=== PATIENT | male | born 1955 | race Caucasian/White ===

== ENCOUNTER 2019-01-06 11:21 | Outpatient (CLI) | payer MEDICARE, OTHER ==
[2019-01-06 18:45] LABS: BASOPHILS % (AUTO) 0.4 %; EOSINOPHILS # (AUTO) 0.2 10^3/uL (0.0-0.7); EOSINOPHILS % (AUTO) 1.9 %; LYMPHOCYTES # (AUTO) 0.5 10^3/uL (1.5-3.5); LYMPHOCYTES % (AUTO) 5.4 %; MEAN CORPUSCULAR HEMOGLOBIN 28.2 pg (27.0-31.0); MEAN CORPUSCULAR HGB CONC 30.5 g/dL (32.0-36.0); MEAN CORPUSCULAR VOLUME 92.3 fL (80.0-94.0); MEAN PLATELET VOLUME 11.7 fL (7.4-11.4); MONOCYTES # (AUTO) 0.6 10^3/uL (0.0-1.0); MONOCYTES % (AUTO) 7.5 %; NEUTROPHILS # (AUTO) 7.1 10^3/uL (1.5-6.6); NEUTROPHILS % (AUTO) 84.2 %; PLT - PLATELET COUNT 192 10^3/uL (130-450); RED CELL DISTRIBUTION WIDTH 15.3 % (12.0-15.0); WHITE BLOOD COUNT 8.4 x10^3/uL (4.8-10.8)
[2019-01-06 19:33] LABS: H. PYLORIS ANTIGEN STL POSITIVE (Negative)
[2019-01-06 20:03] LABS: ALBUMIN 4.2 g/dL (3.2-5.5); ALKALINE PHOSPHATASE 112 IU/L (42-121); ALT ALANINE AMINOTRANSFERASE 16 IU/L (10-60); AMYLASE 126 U/L (28-100); AST ASPARTATE AMINOTRANSFERASE < 10 IU/L (10-42); BILIRUBIN,TOTAL 0.7 mg/dL (0.2-1.0); CHLORIDE 105 mmol/L (101-111); CHOL/HDL RATIO 6.7 (<5.0); CHOLESTEROL 167 mg/dL; GFR - MDRD 3 (>89); GLUCOSE 99 mg/dL (70-100); HDL CHOLESTEROL 25 mg/dL; HGB - HEMOGLOBIN 6.2 g/dL (14.0-18.0); LDL CHOLESTEROL,CALCULATED 103 mg/dL; LDL/HDL RATIO 4.1 (<3.6); LIPASE 91 U/L (22-51); SODIUM 141 mmol/L (135-145); TOTAL PROTEIN 8.3 g/dL (6.7-8.2); VLDL CHOLESTEROL 39 mg/dL
[2019-01-06 20:04] LABS: BUN - BLOOD UREA NITROGEN 182 mg/dL (6-20); CARBON DIOXIDE - CO2 9 mmol/L (21-32); CREATININE 16.8 mg/dL (0.6-1.2)
== END 2019-01-06 23:59 | disposition home or self-care (01) ==
LOC: LAB.N 11:21
PROVIDERS: ATTEND Family Medicine
DX: R11.2 Nausea with vomiting, unspecified (principal); I10 Essential (primary) hypertension; N40.0 Benign prostatic hyperplasia without lower urinary tract symptoms
CPT/HCPCS: 36415; 80061; 82150; 83690; 87338; G0103; 80053; 83721; 84153; 84443; 85025

== ENCOUNTER 2019-01-06 21:17 | Emergency (ER) | payer MEDICARE, OTHER ==
[2019-01-06] MEDS ORDERED: LACTATED RINGERS 1,000 ML IV STA (21:19)
[2019-01-06 21:46] LABS: VBG PCO2 28.5 mmHg (41-51); VBG PH 7.128 (7.31-7.41); VBG PO2 41.5 mmHg (25-47); VBG TOTAL CO2 10.1 mmol/L (24-29)
[2019-01-06 21:47] LABS: VBG BASE EXCESS -18.4 mmol/L (-2 - +2)
[2019-01-06 21:51] LABS: BASOPHILS % (AUTO) 0.4 %; EOSINOPHILS # (AUTO) 0.3 10^3/uL (0.0-0.7); EOSINOPHILS % (AUTO) 2.9 %; LYMPHOCYTES # (AUTO) 0.8 10^3/uL (1.5-3.5); MEAN CORPUSCULAR HEMOGLOBIN 28.4 pg (27.0-31.0); MEAN CORPUSCULAR HGB CONC 31.3 g/dL (32.0-36.0); MEAN CORPUSCULAR VOLUME 90.5 fL (80.0-94.0); MEAN PLATELET VOLUME 11.2 fL (7.4-11.4); MONOCYTES % (AUTO) 11.1 %; NEUTROPHILS # (AUTO) 6.9 10^3/uL (1.5-6.6); PLT - PLATELET COUNT 188 10^3/uL (130-450); RED BLOOD COUNT 2.22 10^6/uL (4.70-6.10); RED CELL DISTRIBUTION WIDTH 15.5 % (12.0-15.0)
[2019-01-06 21:54] LABS: HGB - HEMOGLOBIN 6.3 g/dL (14.0-18.0)
[2019-01-06 21:57] LABS: INR 1.1 (0.8-1.2); PT - PROTHROMBIN TIME 12.8 secs (9.9-12.6)
[2019-01-06 22:03] LABS: KETONES, SERUM (ACETEST) NEGATIVE (NEGATIVE)
[2019-01-06 22:08] LABS: ALBUMIN 4.2 g/dL (3.2-5.5); ALKALINE PHOSPHATASE 112 IU/L (42-121); ALT ALANINE AMINOTRANSFERASE 17 IU/L (10-60); AST ASPARTATE AMINOTRANSFERASE < 10 IU/L (10-42); BILIRUBIN,TOTAL 0.8 mg/dL (0.2-1.0); CALCIUM 7.7 mg/dL (8.5-10.3); CHLORIDE 105 mmol/L (101-111); GFR - MDRD 3 (>89); GLUCOSE 154 mg/dL (70-100); LIPASE 102 U/L (22-51); MAGNESIUM 2.5 mg/dL (1.7-2.8); PHOSPHORUS 11.2 mg/dL (2.5-4.6); SODIUM 142 mmol/L (135-145); TOTAL PROTEIN 8.3 g/dL (6.7-8.2)
[2019-01-06 22:09] LABS: PARTIAL THROMBOPLASTIN TIME 28.1 secs (24.9-33.3)
[2019-01-06 22:12] LABS: CARBON DIOXIDE - CO2 10 mmol/L (21-32)
--- NOTE | 2019-01-06 22:14 | ED Physician Documentation ---
History of Present Illness - Stated complaint Stated Complaint: ABNORMAL LABS - Chief complaint Chief Complaint: General - History obtained from History obtained from: Patient, Other (PCP (called ED prior to patient arrival)) - History of Present Illness Timing: Other (symptoms range from 6 months to 1 year) Pain level max: 0 Pain level now: 0 Improved by: rest Worsened by: exertion Associated symptoms: fatigue, weight loss, dyspnea on exertion - Additonal information Additional information: patient sent to ED by his PCP. Patient had not seen a physician since 2002 until earlier today. He saw a doctor today to discuss fatigue x 1 year, weight loss over past 9 months, and dyspnea on exertion x 6 months. Patient tells me "I just feel blah". PCP performed blood tests and patient was contacted tonight due to severe anemia and critically elevated bun/cr Review of Systems Constitutional: reports: Fatigue, Weight Loss. denies: Fever, Chills, Myalgias, Sweats Eyes: reports: Reviewed and negative Ears: reports: Reviewed and negative Nose: reports: Reviewed and negative Throat: reports: Reviewed and negative Cardiac: reports: Reviewed and negative Respiratory: reports: Dyspnea (with exertion). denies: Cough, Hemoptysis, Wheezing GI: reports: Reviewed and negative : denies: Dysuria, Frequency Skin: reports: Reviewed and negative Musculoskeletal: reports: Reviewed and negative Neurologic: reports: Reviewed and negative PD PAST MEDICAL HISTORY - Past Medical History Past Medical History: Yes Cardiovascular: Hypertension - Past Surgical History Past Surgical History: No - Present Medications Home Medications: Ambulatory Orders Medication Instructions Recorded Confirmed No Known Home Medications 01/06/19 01/06/19 - Allergies Allergies/Adverse Reactions: Allergies Allergy/AdvReac Type Severity Reaction Status Date / Time No Known Drug Allergies Allergy Verified 01/06/19 21:31 - Social History Does the pt smoke?: No Smoking Status: Never smoker Does the pt drink ETOH?: No Does the pt have substance abuse?: No - Immunizations Immunizations are current?: No Immunizations: TDAP >10years/unknown - POLST Patient has POLST: No PD ED PE NORMAL - Vitals Vital signs reviewed: Yes - General General: Alert and oriented X 3, No acute distress, Well developed/nourished - HEENT HEENT: PERRL, EOMI, Moist mucous membranes - Neck Neck: Supple, no meningeal sign - Cardiac Cardiac: RRR (frequent extra beats), No murmur, No gallop, No rub - Respiratory Respiratory: No respiratory distress, Clear bilaterally - Abdomen Abdomen: Normal bowel sounds, Soft, Non tender, Non distended - Back Back: No CVA TTP - Derm Derm: Normal color, Warm and dry - Extremities Extremities: No edema - Neuro Neuro: Alert and oriented X 3 Eye Opening: Spontaneous Motor: Obeys Commands Verbal: Oriented GCS Score: 15 PD ED PE EXPANDED - Rectal Rectal: Heme Occult Pos - QC + (trace positive, brown stool) Results - Vitals Vitals: Vital Signs - 24 hr 01/06/19 01/06/19 01/06/19 21:25 22:23 23:06 Temperature 36.4 C L Heart Rate 86 84 87 Respiratory 12 11 L 13 Rate Blood Pressure 182/93 H 176/88 H 165/98 H O2 Saturation 100 100 100 01/07/19 01/07/19 01/07/19 00:25 01:46 02:22 Temperature 36.6 C 36.3 C L Heart Rate 82 84 86 Respiratory 13 15 13 Rate Blood Pressure 166/99 H 167/94 H 160/93 H O2 Saturation 100 100 100 Oxygen O2 Source Room air - Labs Labs: Laboratory Tests 01/06/19 01/06/19 01/06/19 21:35 21:35 21:35 WBC 9.0 RBC 2.22 L Hgb 6.3 L* Hct 20.1 L MCV 90.5 MCH 28.4 MCHC 31.3 L RDW 15.5 H Plt Count 188 MPV 11.2 Neut # (Auto) 6.9 H Lymph # (Auto) 0.8 L [place] # (Auto) 1.0 Eos # (Auto) 0.3 Baso # (Auto) 0.0 Absolute Nucleated RBC 0.00 Nucleated RBC % 0.0 PT INR APTT VBG pH 7.128 L VBG pCO2 28.5 L VBG pO2 41.5 VBG HCO3 9.2 L VBG Total CO2 10.1 L VBG O2 Saturation 67.1 VBG Base Excess -18.4 L Sodium 142 Potassium 5.2 H Chloride 105 Carbon Dioxide 10 L* Anion Gap 27.0 H BUN 166 H* Creatinine 17.0 H* Estimated GFR (MDRD) 3 L Glucose 154 H Calcium 7.7 L Phosphorus 11.2 H Magnesium 2.5 Total Bilirubin 0.8 AST < 10 L ALT 17 Alkaline Phosphatase 112 Total Protein 8.3 H Albumin 4.2 Globulin 4.1 Albumin/Globulin Ratio 1.0 Lipase 102 H Urine Color Urine Clarity Urine pH Ur Specific [place] Urine Protein Urine Glucose (UA) Urine Ketones Urine Occult Blood Urine Nitrite Urine Bilirubin Urine Urobilinogen Ur Leukocyte Esterase Urine RBC Urine WBC Ur Squamous Epith Cells Urine Bacteria Ur Microscopic Review Urine Culture Comments Serum Ketones NEGATIVE Blood Type Blood Type Recheck Antibody Screen Crossmatch IS Only 01/06/19 01/06/19 01/06/19 21:35 21:35 21:35 WBC RBC Hgb Hct MCV MCH MCHC RDW Plt Count MPV Neut # (Auto) Lymph # (Auto) [place] # (Auto) Eos # (Auto) Baso # (Auto) Absolute Nucleated RBC Nucleated RBC % PT 12.8 H INR 1.1 APTT 28.1 VBG pH VBG pCO2 VBG pO2 VBG HCO3 VBG Total CO2 VBG O2 Saturation VBG Base Excess Sodium Potassium Chloride Carbon Dioxide Anion Gap BUN Creatinine Estimated GFR (MDRD) Glucose Calcium Phosphorus Magnesium Total Bilirubin AST ALT Alkaline Phosphatase Total Protein Albumin Globulin Albumin/Globulin Ratio Lipase Urine Color Urine Clarity Urine pH Ur Specific [place] Urine Protein Urine Glucose (UA) Urine Ketones Urine Occult Blood Urine Nitrite Urine Bilirubin Urine Urobilinogen Ur Leukocyte Esterase Urine RBC Urine WBC Ur Squamous Epith Cells Urine Bacteria Ur Microscopic Review Urine Culture Comments Serum Ketones Blood Type A POSITIVE Blood Type Recheck A POSITIVE Antibody Screen NEGATIVE Crossmatch IS Only See Detail 01/06/19 23:26 WBC RBC Hgb Hct MCV MCH MCHC RDW Plt Count MPV Neut # (Auto) Lymph # (Auto) [place] # (Auto) Eos # (Auto) Baso # (Auto) Absolute Nucleated RBC Nucleated RBC % PT INR APTT VBG pH VBG pCO2 VBG pO2 VBG HCO3 VBG Total CO2 VBG O2 Saturation VBG Base Excess Sodium Potassium Chloride Carbon Dioxide Anion Gap BUN Creatinine Estimated GFR (MDRD) Glucose Calcium Phosphorus Magnesium Total Bilirubin AST ALT Alkaline Phosphatase Total Protein Albumin Globulin Albumin/Globulin Ratio Lipase Urine Color YELLOW Urine Clarity HAZY Urine pH 6.5 Ur Specific [place] 1.010 Urine Protein 30 H Urine Glucose (UA) NEGATIVE Urine Ketones NEGATIVE Urine Occult Blood MODERATE H Urine Nitrite POSITIVE H Urine Bilirubin NEGATIVE Urine Urobilinogen 0.2 (NORMAL) Ur Leukocyte Esterase MODERATE H Urine RBC 6-10 H Urine WBC >25 H Ur Squamous Epith Cells FEW Squamous Urine Bacteria Few Ur Microscopic Review INDICATED Urine Culture Comments INDICATED Serum Ketones Blood Type Blood Type Recheck Antibody Screen Crossmatch IS Only PD MEDICAL DECISION MAKING - ED course Complexity details: reviewed results, re-evaluated patient, considered differential, d/w patient ED course: blood tests in ED confirm the outpatient findings which includes severe anemia and bun/creatinine s/o ARF. Despite these findings, he has stable vital signs and is in NAD during ED stay. [facility] contacted for transfer; they have no beds available. [facility] transfer center contacted. They called back and said after d/w hospitalist, they do not have appropriate beds for this patient available at this time. They then contacted [facility]. After some time, they eventually called back and said they do not have beds available . D/W Dr. Austin at [facility], accepts transfer. Departure - Departure Disposition: 02 Transfer Acute Care Hosp Clinical Impression: Acute renal failure (ARF) Qualifiers: Acute renal failure type: unspecified Qualified Code(s): N17.9 - Acute kidney failure, unspecified Anemia Qualifiers: Anemia type: unspecified type Qualified Code(s): D64.9 - Anemia, unspecified Condition: Stable Discharge Date/Time: 01/07/19 02:33
[2019-01-06 22:21] LABS: BUN - BLOOD UREA NITROGEN 166 mg/dL (6-20)
[2019-01-06 23:40] LABS: BILIRUBIN,URINE NEGATIVE (NEGATIVE); GLUCOSE, URINE (UA) NEGATIVE (NEGATIVE); KETONES,URINE (UA) NEGATIVE (NEGATIVE); LEUKOCYTE ESTERASE, URINE MODERATE (NEGATIVE); NITRITE,URINE POSITIVE (NEGATIVE); OCCULT BLOOD,URINE MODERATE (NEGATIVE); PH,URINE 6.5 PH (5.0-7.5); PROTEIN,URINE 30 mg/dL (NEGATIVE); UROBILINOGEN,URINE 0.2 (NORMAL) E.U./dL (NORMAL)
[2019-01-06 23:41] LABS: CLARITY,URINE HAZY (CLEAR)
[2019-01-06 23:48] LABS: BACTERIA,URINE Few /HPF (None Seen); SQUAMOUS EPITHELIAL CELL,UR FEW Squamous (<= Few)
[2019-01-07 02:23] VITALS: BP 160/93
== END 2019-01-07 02:33 | disposition short-term general hospital (02) ==
LOC: ED 21:17
DX: N17.9 Acute kidney failure, unspecified (principal); D64.9 Anemia, unspecified; I10 Essential (primary) hypertension; R11.2 Nausea with vomiting, unspecified; N40.0 Benign prostatic hyperplasia without lower urinary tract symptoms
CPT/HCPCS: 36415; 80061; 81001; 82009; 82150; 82803; 83690; 83735; 84100; 85610; 85730; 86850; 86900; 86901; 86920; 87086; 87338; 96360; 96361; 99284; 99285; G0103; J7120; 80053; 81003; 83721; 84153; 84443; 85025

== ENCOUNTER 2019-08-24 08:33 | Outpatient (CLI) | payer MEDICARE, OTHER ==
--- NOTE | 2019-08-24 22:24 | XRAY Report ---
Reason: osteoarthritis Procedure Date: 08/24/2019 Accession Number: [id number] / [id number] Procedure: XRN - Knee 3 View BILAT CPT Code: Final Report FULL RESULT: EXAMS: 1. Right Knee Radiography 2. Left Knee Radiography EXAM DATE:08/24/2019 10:00 AM. CLINICAL HISTORY:Osteoarthritis. COMPARISON: None. TECHNIQUE: 3 views each. FINDINGS: Right Knee: Bones: No acute fractures or suspicious bone lesions. Joints: No effusion. No subluxations. Patellofemoral osteophytes. Ossification at the medial femoral condyle likely reflects sequela of chronic ligament injury. Soft Tissues: Vascular calcifications. Left Knee: Bones: No acute fractures or suspicious bone lesions. Joints: Small effusion. No subluxations. Small lateral tibial osteophyte. Patellofemoral osteophytes. Soft Tissues: Vascular calcifications. IMPRESSION: Mild osteoarthritis worse in the patellofemoral compartment. Kellgren Riaz Grade 2. Kellgren and Riaz classification of osteoarthritis: Grade 0: no radiographic features of osteoarthritis are present Grade 1: doubtful joint space narrowing (JSN) and possible osteophytic lipping Grade 2: definite osteophytes and possible JSN on anteroposterior weight-bearing radiograph Grade 3: multiple osteophytes, definite JSN, sclerosis, possible bony deformity Grade 4: large osteophytes, marked JSN, severe sclerosis and definite bony deformity RADIA
--- NOTE | 2019-08-24 22:30 | XRAY Report ---
Reason: L shoulder pain Procedure Date: 08/24/2019 Accession Number: [id number] / [id number] Procedure: XRN - Shoulder 2 View LT CPT Code: Final Report FULL RESULT: EXAM: LEFT SHOULDER RADIOGRAPHY EXAM DATE: 08/24/2019 09:29 AM. CLINICAL HISTORY: L shoulder pain. COMPARISON: THORACIC SPINE 2 VIEW 08/24/2019 9:26 AM. TECHNIQUE: 3 views. FINDINGS: Bones: No acute fracture or suspicious bone lesion. Joints: The glenohumeral and acromioclavicular joints demonstrate mild osteoarthritis. No definite dislocation. Soft tissues: The partially imaged lung is unremarkable. IMPRESSION: No definite dislocation. Scapular Y view is limited. Consider axillary view. No acute fracture seen. RADIA
--- NOTE | 2019-08-25 02:10 | XRAY Report ---
Reason: back pain Procedure Date: 08/24/2019 Accession Number: [id number] / [id number] Procedure: XRN - Thoracic Spine 2 View CPT Code: Final Report FULL RESULT: EXAM: THORACIC SPINE RADIOGRAPHY EXAM DATE: 08/24/2019 09:26 AM. CLINICAL HISTORY: Back pain. COMPARISON: None. TECHNIQUE: 2 views. FINDINGS: Alignment: Levoscoliosis. No spondylolisthesis. Bones: No fractures or bone lesions. Disks: Moderate multilevel degenerative disk disease with bridging osteophytes. Soft Tissues: Grossly unremarkable. IMPRESSION: 1. Thoracic levoscoliosis with multilevel degenerative disk disease and bridging osteophytes. RADIA
--- NOTE | 2019-08-25 02:12 | XRAY Report ---
Reason: osteoarthritis Procedure Date: 08/24/2019 Accession Number: [id number] / [id number] Procedure: XRN - Hand 3 View BILAT CPT Code: Final Report FULL RESULT: EXAMS: 1. Right Hand Radiography 2. Left Hand Radiography EXAM DATE: 08/24/2019 09:47 AM. CLINICAL HISTORY: Osteoarthritis. COMPARISON: None. TECHNIQUE: 3 views each hand. FINDINGS: Right: Bones: No fracture seen. No acute osseous abnormality. Joints: No dislocation seen. Degenerative joint disease in the interphalangeal joints, first through third MCP joints, and first CMC joint. Soft Tissues: Vascular calcifications. Left: Bones: No fracture seen. No acute osseous abnormality. Joints: No dislocation seen. Degenerative joint disease in the interphalangeal joints, first through third MCP joints, and first CMC joint. Soft Tissues: Vascular calcifications. IMPRESSION: 1. 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 RADIA
--- NOTE | 2019-08-25 02:15 | XRAY Report ---
Reason: neck pain Procedure Date: 08/24/2019 Accession Number: [id number] / [id number] Procedure: XRN - Cervical Spine 2 View CPT Code: Final Report FULL RESULT: EXAM: CERVICAL SPINE RADIOGRAPHY EXAM DATE: 08/24/2019 09:21 AM. CLINICAL HISTORY: Neck pain. COMPARISONS: None. TECHNIQUE: 3 views. FINDINGS: Alignment: No spondylolisthesis or scoliosis. Bones: The cervical vertebral bodies and posterior elements are visualized from the skull base through C7-T1. No fractures or bone lesions. Disks: Multilevel degenerative disk disease, most severe at C5-C6 and C6-C7. Facets: Multilevel degenerative joint disease. Soft Tissues: No prevertebral soft tissue swelling. Bilateral carotid artery calcifications. The visualized lung apices appear clear. IMPRESSION: 1. No acute cervical spine abnormality. 2. Multilevel degenerative changes. 3. Bilateral carotid artery calcifications. RADIA
== END 2019-08-24 08:34 | disposition home or self-care (01) ==
LOC: DI.N 08:33
PROVIDERS: ATTEND Family Medicine
DX: M50.31 Other cervical disc degeneration, high cervical region (principal); M47.812 Spondylosis without myelopathy or radiculopathy, cervical region; M18.0 Bilateral primary osteoarthritis of first carpometacarpal joints; M19.041 Primary osteoarthritis, right hand; M19.042 Primary osteoarthritis, left hand; M19.032 Primary osteoarthritis, left wrist; M19.031 Primary osteoarthritis, right wrist; M51.34 Other intervertebral disc degeneration, thoracic region; M41.9 Scoliosis, unspecified; M19.012 Primary osteoarthritis, left shoulder; M17.0 Bilateral primary osteoarthritis of knee
CPT/HCPCS: 72040; 72070